=== PATIENT | male | born 1965 | race Caucasian/White ===

== ENCOUNTER → 2017-01-26 | Day surgery (SDC) | payer OTHER, MEDICARE ==
[~2017-01-26] VITALS: Ht 193 cm; Wt 187.8 kg
[~2017-01-26] MED LIST: LOSARTAN POTAS100 M1 PO; METHADONE PO; NEURONTIN800 M2 PO; ROXICODONE PO
--- NOTE | 2017-01-26 17:04 | Operative Report ---
Operative/Inv Procedure Report Surgery Date: 01/26/17 Name of Procedure: Spinal cord stimulation trial Pre-Operative Diagnosis: Chronic lumbar radiculopathy Post-Operative Diagnosis: Chronic lumbar radiculopathy Estimated Blood Loss: scant Surgeon/Plant Floor Automation Manager: SHERIDAN PATEL MD Anesthesia: moderate sedation Implants: Spinal cord stimulating leads (2) Operative/Procedure Note Note: After consent the patient was brought to the operating room and placed in the prone position. The thoracic and lumbar spine was prepped and draped in the usual fashion. The T12-L1 interlaminar space was identified with fluoroscopy. 1.5 spinal segments below the right and left paramedian area was infiltrated with 1% lidocaine. An epidural needle was inserted to the right of midline and directed to the T12-L1 intralaminar space with fluoroscopy. The epidural space was entered uneventfully with loss of resistance. The first epidural lead was threaded in the posterior midline epidural space to the T7 level. A second to a needle was inserted to the left of midline and guided to the T12-L1 interlaminar space with fluoroscopy. The epidural space was entered uneventfully with loss of resistance. The second epidural lead was threaded in the posterior midline epidural space to the T8 level. AP and lateral fluoroscopy confirmed posterior midline placement. The needles and stylets were removed and the leads were sutured to the skin with 2-0 silk suture for anchors. Dressings were applied the patient was brought to the recovery area for programming.
--- NOTE | 2017-01-27 10:09 | RADIOLOGY REPORT ---
EXAMINATION: XR LUMBOSACRAL SPINE/INTRAOPERATIVE FLUOROSCOPY CLINICAL INFORMATION: DCS trial in OR COMPARISON: None TECHNIQUE/FINDINGS: Fluoroscopic equipment was dedicated to the operating room for the performance of a DCS trial. 5 fluoroscopic spot films were acquired and are archived in PACS. Please refer to operative notes for procedural detail. Images demonstrate electrodes projected over the mid thoracic spine. FLUOROSCOPY TIME: 3.8 minutes. IMPRESSION: Administrative dictation for DCIS trial and or. Please refer to operative notes for procedural detail.
== END ==
LOC: STS 01:50
DX: M54.16 Radiculopathy, lumbar region (principal); I10 Essential (primary) hypertension; E66.01 Morbid (severe) obesity due to excess calories; Z68.43 Body mass index [BMI] 50.0-59.9, adult; F17.200 Nicotine dependence, unspecified, uncomplicated; Z79.891 Long term (current) use of opiate analgesic
CPT/HCPCS: 36415; 72100; C1778; J0690; J2250